=== PATIENT | female | born 1960 | race Two or more races ===

== ENCOUNTER 2024-04-16 13:30 | Emergency (ER) | payer MEDICAID ==
[~2024-04-16] VITALS: Ht 165.1 cm; Wt 70.0 kg
[2024-04-16 13:31] VITALS: TEMP 98.6; O2SAT 98
[2024-04-16 13:54] LABS: CLARITY URINE CLEAR (CLEAR); COLOR URINE YELLOW (YELLOW); GLUCOSE URINE 3+ (NEGATIVE); KETONES URINE NEGATIVE (NEGATIVE); LEUKOCYTE ESTERASE URINE NEGATIVE (NEGATIVE); NITRITE URINE NEGATIVE (NEGATIVE); OCCULT BLOOD URINE NEGATIVE (NEGATIVE); PH URINE 6.5 (4.5-8.0); PROTEIN URINE NEGATIVE (NEGATIVE); SPECIFIC GRAVITY URINE 1.015 (1.005-1.030)
[2024-04-16 14:01] LABS: CHLORIDE 107 mEq/L (98-107); POTASSIUM 3.4 mEq/L (3.5-5.1); SODIUM 140 mEq/L (136-145)
[2024-04-16 14:02] LABS: CALCIUM 9.9 mg/dL (8.7-10.4); CARBON DIOXIDE 23 mEq/L (21-32)
[2024-04-16 14:07] LABS: BASOPHILS % 0.4 % (0.0-2.0); CREATININE 0.7 mg/dL (0.6-1.0); EOSINOPHILS % 1.8 % (0.0-5.0); GLUCOSE 99 mg/dL (70-105); HEMATOCRIT. 42.5 % (36.0-48.0); HEMOGLOBIN. 14.1 g/dL (12.0-16.0); LYMPHOCYTES % 25.5 % (20.0-50.0); MEAN CORPUSCULAR HEMOGLOBIN 29.9 pg (28.0-32.0); MEAN CORPUSCULAR HGB CONC 33.3 g/dL (31.0-37.0); MEAN CORPUSCULAR VOLUME 89.8 fL (81.0-99.0); MEAN PLATELET VOLUME 8.6 fl (7.4-10.4); MONOCYTES % 6.8 % (2.0-8.0); NEUTROPHILS % 65.5 % (40.0-76.0); PLATELET 324 x1000/uL (130-400); RED BLOOD CELL COUNT 4.73 mill/uL (4.2-5.4); RED CELL DISTRIBUTION WIDTH 13.6 % (11.6-14.6); UREA NITROGEN BLOOD 13 mg/dL (9-23); WHITE BLOOD COUNT 8.2 x1000/uL (4.5-11.0)
[2024-04-16 14:21] LABS: BACTERIA URINE TRACE; SQUAMOUS EPITHELIAL CELL URINE RARE /lpf (RARE/1+); WBC URINE 0-2 /hpf (0-2)
[2024-04-16 14:22] LABS: RBC URINE NONE SEEN /hpf (0-2)
[2024-04-16 14:38] LABS: ALANINE AMINOTRANSFERASE 81 IU/L (10-49); ALBUMIN 4.6 g/dL (3.2-4.8); ASPARTATE AMINOTRANSFERASE 55 IU/L (<34); BILIRUBIN DIRECT 0.2 mg/dL (<=3.0); BILIRUBIN TOTAL 0.7 mg/dL (0.1-1.0); PROTEIN TOTAL 7.2 g/dL (6.0-8.3)
[2024-04-16] MEDS: KETOROLAC 30MG/ML VIAL IM STA (14:52)
[2024-04-16 15:46] VITALS: BP 132/78; PULSE 77; RESP 14; O2SAT 99
== END 2024-04-16 15:47 | disposition home or self-care (01) ==
LOC: ER 13:48
DX: R10.31 Right lower quadrant pain (principal); E11.9 Type 2 diabetes mellitus without complications; I10 Essential (primary) hypertension; Z90.49 Acquired absence of other specified parts of digestive tract
CPT/HCPCS: 99285; 74176; 80076; 80048; 81003; 83690; 85025; 36415; 96372; J1885